=== PATIENT | male | born 1990 | race Two or more races ===

== ENCOUNTER 2017-07-09 13:08 | Emergency (ER) | payer MEDICAID ==
[2017-07-09] MEDS ORDERED: SODIUM CHLORIDE 0.9% 1,000 ML IV ONE (13:18)
[2017-07-09 14:47] LABS: Basophils # (auto) 0 uL; Eosinophils # (auto) 0 uL; Eosinophils % (auto) 0.1 % (0.0-7.0); Hemoglobin 13.6 g/dL (13.5-17.5); Lymphocytes # (auto) 1.2 uL; Mean Corpuscular Volume 81.5 fL (80.0-100.0)
[2017-07-09 14:48] LABS: Basophils % (auto) 0.3 % (0.0-2.0); Hematocrit 41.1 % (41.0-53.0); Lymphocytes % (auto) 15.1 % (10.0-50.0); Mean Corpuscular Hgb Conc. 33.1 g/dL (32.0-36.0); Monocytes # (auto) 0.7 uL; Monocytes % (auto) 9.1 % (0.0-12.0); Neutrophils # (auto) 6.2 uL; Neutrophils % (auto) 75.4 % (37.0-80.0); Platelet Count (auto) 263 10^3/uL (140-450); Red Blood Cells 5.04 10^6/uL (4.5-5.90); Red Cell Distribution Width 14.9 % (11.8-14.3); White Blood Cell 8.3 10^3/uL (4.4-10.8)
[2017-07-09 15:04] LABS: Albumin 4.2 g/dL (3.4-5.0); BUN/Creatinine Ratio 14.6; Bilirubin, Total 0.3 mg/dL (0.2-1.0); Calcium 8.7 mg/dL (8.5-10.1); Potassium 3.4 mmol/L (3.5-5.1); Total Protein 8.4 g/dL (6.4-8.2)
[2017-07-09 16:25] VITALS: BP 143/93
[2017-07-09] MEDS ORDERED: POTASSIUM CHL 10% (20 MEQ/15ML) 15ml ORAL SOLN PO ONE (17:15)
== END 2017-07-09 17:00 | disposition home or self-care (01) ==
LOC: ER 13:08 → EDBD 13:08 → ER 17:00
DX: G40.909 Epilepsy, unspecified, not intractable, without status epilepticus (principal); F84.0 Autistic disorder; R41.82 Altered mental status, unspecified; F79 Unspecified intellectual disabilities
CPT/HCPCS: 36415; 70450; 80053; 85025; 96360; 96361; 99285; J7030